=== PATIENT | male | born 1970 | race Two or more races ===

== ENCOUNTER 2019-10-06 17:11 | Emergency (ER) | payer SELFPAY ==
[~2019-10-06] VITALS: Ht 188 cm; Wt 92.5 kg
[2019-10-06 17:55] VITALS: BP 143/77
--- NOTE | 2019-10-06 18:01 | NUR ---
ED Nurse Note: Patient walked in to the ER due to left inner thigh varicous vein laser procedure done x 4 days ago and reports swelling at the site and would like to get it checked out. AAO x4, VSS at this time.
--- NOTE | 2019-10-06 19:05 | NUR ---
ED Nurse Note: US at bedside
[2019-10-06 19:10] VITALS: BP 139/78
--- NOTE | 2019-10-06 19:10 | NUR ---
ED Nurse Note: report received from JOSE MANUEL Copeland. Pt resting in bed, VSS no s/s of distress noted.
--- NOTE | 2019-10-06 19:34 | NUR ---
ED Nurse Note: Us left bedside; pt ambulated to restroom aaox4, steady gait, stable condition
--- NOTE | 2019-10-06 19:38 | NUR ---
ED Nurse Note: pt returned to bedside in stable condition, no s/s of distress noted, aao x 4 steady gait.
--- NOTE | 2019-10-06 19:40 | NUR ---
ED Nurse Note: ERMD at bedside
--- NOTE | 2019-10-06 19:51 | Emergency Room Report ---
History of Present Illness General Chief Complaint: General Complaint Source: Patient Present Illness HPI 48-year-old male with no significant past medical history here complaining of slight pain on his left thigh after he had varicose vein ablation done 4 days ago. Patient is worried about clots. No erythema noted at the site of ablation. Not warm to touch. Patient denies any calf tenderness, chest pain shortness of breath. Ambulating without any pain. Has not taken medication for symptom relief. Patient otherwise stable. Denies tingling and numbness. Patient is a non-smoker, and other than varicose vein appellation has not had any recent procedures or surgeries done. Denies any recent travel. Allergies: Coded Allergies: No Known Allergies (Unverified , 10/06/19) Patient History Past Medical History: see triage record Past Surgical History: none Pertinent Family History: none Immunizations: UTD Reviewed Nursing Documentation: PMH: Agreed; PSxH: Agreed Nursing Documentation-PMH Hx Hypertension: Yes Review of Systems All Other Systems: negative except mentioned in HPI Physical Exam Vital Signs Date Time Temp Pulse Resp B/P (MAP) Pulse Ox O2 Delivery O2 Flow Rate FiO2 10/06/19 17:40 98.4 83 18 143/77 (99) 98 Room Air Sp02 EP Interpretation: reviewed, normal General Appearance: no apparent distress, alert, GCS 15, non-toxic Head: normocephalic, atraumatic Eyes: bilateral eye normal inspection, bilateral eye PERRL ENT: hearing grossly normal, normal pharynx, no angioedema, normal voice Neck: full range of motion, supple, thyroid normal, no meningismus, no bony tend, supple/symm/no masses Respiratory: chest non-tender, lungs clear, normal breath sounds, no rhonchi, no retraction, no wheezing, speaking full sentences Cardiovascular #1: regular rate, rhythm, no edema, no murmur Cardiovascular #2: 2+ dorsalis pedis (R), 2+ dorsalis pedis (L) Gastrointestinal: normal bowel sounds, non tender, soft, non-distended, no guarding, no rebound Rectal: deferred Genitourinary: no CVA tenderness Musculoskeletal: back normal, normal range of motion, no calf tenderness, other - Postop lesion varicose vein left thigh without any erythema or drainage Neurologic: alert, motor strength/tone normal, oriented x3, sensory intact, responsive, speech normal Psychiatric: judgement/insight normal, memory normal, mood/affect normal, no suicidal/homicidal ideation Skin: no rash Lymphatic: no adenopathy Medical Decision Making PA Attestation Diagnosis and treatment plans were reviewed and discussed with my supervising physician Dr. Cuellar Diagnostic Impression: Primary Impression: Varicose vein of leg ER Course 48-year-old male with no significant past medical history here complaining of slight pain on his left thigh after he had varicose vein ablation done 4 days ago. Patient is worried about clots. No erythema noted at the site of ablation. Not warm to touch. Patient denies any calf tenderness, chest pain shortness of breath. Ambulating without any pain. Has not taken medication for symptom relief. Patient otherwise stable. Denies tingling and numbness. Patient is a non-smoker, and other than varicose vein appellation has not had any recent procedures or surgeries done. Denies any recent travel. Ddx considered but are not limited to : Cellulitis, DVT, superficial infection, abscess Vital signs: are WNL, pt. is afebrile H&PE are most consistent with: Post varicose vein ablation pain ORDERS: Left lower extremity venous duplex ultrasound ED INTERVENTIONS: None required at this time. DISCHARGE: At this time pt. is stable for d/c to home. Will provide printed patient care instructions, and any necessary prescriptions. Care plan and follow up instructions have been discussed with the patient prior to discharge. Patient to follow-up with his surgeon, at this time no DVT noted, if worsening symptoms return to the emergency room CT/MRI/US Diagnostic Results CT/MRI/US Diagnostic Results : Imaging Test Ordered: Left lower extremity venous duplex ultrasound Impression No DVT noted Last Vital Signs Date Time Temp Pulse Resp B/P (MAP) Pulse Ox O2 Delivery O2 Flow Rate FiO2 10/06/19 17:55 83 18 Room Air 10/06/19 17:55 98.4 143/77 98 Disposition: HOME, SELF-CARE Condition: Stable Referrals: NOT CHOSEN IPA/,REFERRING (PCP) Patient Instructions: Varicose Vein Surgery, Care After Additional Instructions: Follow-up with your surgeon, avoid strenuous physical activity with the affected side, if worsening symptoms return to the emergency room Artur Benavidez Oct 06, 2019 19:51
[2019-10-06 20:00] VITALS: BP 139/75
--- NOTE | 2019-10-06 20:00 | NUR ---
ER DISCHARGE NOTE: Patient is cleared to be discharged home per ERMD, pt is aox4, on room air, with stable vital signs. pt was given dc and prescription instructions, pt was able to verbalize understanding, pt id band and iv site removed without complications. pt is able to ambulate with steady gait. pt took all belongings.
--- NOTE | 2019-10-06 21:28 | Diagnostic Imaging Report ---
EXAM: US Duplex Left Lower Extremity Veins CLINICAL HISTORY: DVT TECHNIQUE: Real-time duplex ultrasound scan of the left lower extremity veins integrating B-mode two-dimensional vascular structure, Doppler spectral analysis, color flow Doppler imaging and compression. COMPARISON: No relevant prior studies available. FINDINGS: No evidence of left lower extremity DVT.
== END 2019-10-06 20:00 | disposition home or self-care (01) ==
LOC: EMR 18:00
DX: I83.92 Asymptomatic varicose veins of left lower extremity (principal); Z98.890 Other specified postprocedural states; I10 Essential (primary) hypertension
CPT/HCPCS: 93971; 99284